=== PATIENT | male | born 1960 | race Caucasian/White ===

== ENCOUNTER 2017-05-24 15:33 | Inpatient (IN) | payer OTHER ==
[~2017-05-24] VITALS: Ht 177.8 cm; Wt 101.2 kg
--- NOTE | ~2017-05-24 | HP ---
Unit #: [id number] #: [id number] Patient: GUNNAR LEONARDO [id number] [place] [address] [id number] MR#: [id number] NAME: GUNNAR LEONARDO ROOM: P178 Age: 56 Sex: M Admission Date: 05/24/2017 : 1960 Attending Physician: Rob Youngblood M.D. Admitting Physician: Rob Youngblood M.D. Primary Care Physician: Primary Care Physician No HISTORY AND PHYSICAL HISTORY OF PRESENT ILLNESS Gunnar is a 56 year old admitted to [facility] because of his continued polysubstance abuse which includes opioids and benzodiazepines. He has had other admissions to this facility for the same. PAST MEDICAL HISTORY 1. Long history of illicit substance abuse. 2. Celiac disease. 3. High blood pressure. 4. History of diverticulitis. PAST SURGICAL HISTORY 1. Colon resection. 2. Right inguinal hernia repair. ALLERGIES No known drug allergies. SOCIAL HISTORY He does not smoke. Drinks alcohol on occasion. Admits to a long history of illicit substance abuse to include opioids and benzodiazepines. FAMILY HISTORY Medically noncontributory. REVIEW OF SYSTEMS CONSTITUTIONAL: No fever or chills. HEENT: Denies any sore throat, ear pain or runny nose. CARDIOVASCULAR: Denies chest pain, irregular heart rhythm or palpitations. CHEST: Denies shortness of breath or cough. No hemoptysis. GASTROINTESTINAL: Denies nausea, vomiting, diarrhea or chronic constipation. ENDOCRINE: Denies history of increased thirst or urination. No recent significant weight loss or gain. GENITOURINARY: Denies dysuria, frequency, or hematuria. SKIN: Denies any rashes. HEMATOLOGIC: Denies history of increased bleeding or bruising. MUSCULOSKELETAL: Denies any hot, swollen joints. No generalized muscle pain. NEUROLOGIC: Denies problems with vision or speech. No frequent, severe headaches. No numbness, tingling or weakness in any extremities. Denies loss of bladder or bowel control. Unit #: [id number] #: [id number] Patient: GUNNAR LEONARDO CURRENT MEDICATIONS Detox protocol PHYSICAL EXAMINATION GENERAL: Alert, well-nourished, in no apparent distress. VITAL SIGNS: Blood pressure 130/80, heart rate 60, respirations 16, temperature 98.6. WEIGHT: 223 pounds. HEIGHT: 5'10". SKIN: Warm and dry without rash or lesion. HEENT: Normocephalic. TMs not viewed. Oral and nasal passages clear. Conjunctivae clear. Pupils equal, round and reactive to light and accommodation. Extraocular movements intact. NECK: Supple without lymphadenopathy or thyromegaly. HEART: Regular rate and rhythm without murmur. LUNGS: Clear. ABDOMEN: Soft, nontender. : Not done. EXTREMITIES: No evidence of cyanosis, clubbing or edema. Moves all extremities without focal deficit. NEUROLOGICAL: Grossly within normal limits. Cranial Nerves: II: Visual horta are intact. III, IV AND : Extraocular movements are intact. Pupils are equal, round and reactive to light. V: Facial sensation is grossly normal. VII: Facial movements and expression are normal. VIII: Auditory acuity grossly intact. IX, X: Uvula is midline. Phonation is normal. XI: Patient shrugs shoulders and turns head normally. XII: Tongue protrudes in the midline. Sensory and Motor Function: Sensory and motor sensation is grossly normal. Motor: moves all extremities well. Coordination: Gait is normal. Deep Tendon Reflexes: Intact. IMPRESSION Psychiatric admission RECOMMENDATIONS PSYCHIATRIC: Per psychiatrist. MEDICAL: 1. I see no contraindications to participating in facility's activities. 2. Monitor blood pressure q shift. Pressures are controlled on admission and he is admitted on no blood pressure medication. MEDICAL PROGNOSIS Good. MEDICAL CONDITION Stable. Dictated by... Kathy Sal P.A.-C. for Albino Shoemaker M.D. Unit #: [id number] #: [id number] Patient: GUNNAR LEONARDO MAYCO/dennis TD: 05/25/2017 21:39 JOB #: [id number] HISTORY AND PHYSICAL Page 1 of 1 X Kathy Sal HISTORY AND PHYSICAL
--- NOTE | ~2017-05-24 | DS ---
Unit #: [id number] #: [id number] Patient: GUNNAR LEONARDO [id number] [facility] [address] [place] [address] [id number] MR#: [id number] NAME: GUNNAR LEONARDO ROOM: [facility] Age: 56 Sex: M Admission Date: 05/24/2017 : 1960 Discharge Date: 05/26/2017 Attending Physician: Rob Youngblood M.D. Primary Care Physician: Primary Care Physician No DISCHARGE SUMMARY REASON FOR ADMISSION Gunnar is a 56-year-old man, who reported he has been using 100 to 160 mg of oxycodone daily together with small amounts of alprazolam. He had suicidal ideation with a plan to shoot himself and was admitted for stabilization. LABORATORY DATA Please see hospital chart. HOSPITAL COURSE The patient was admitted and placed on the opioid detox protocol and p.r.n. Ativan. He declined initiation of antidepressant medication, and did not express further suicidal ideation after admission. The following day, he showed significant improvement with establishment of sobriety and minimal detox symptoms. He was once again able to contract for safety in the outpatient setting at that time. DISCHARGE DIAGNOSES AXIS I: Opiate dependence with withdrawal, uncomplicated; benzodiazepine abuse. AXIS II: No diagnosis. AXIS III: Polysubstance withdrawal. AXIS IV: AXIS V: DISCHARGE INSTRUCTIONS Follow up with intensive outpatient program at this facility and primary care physician. DISCHARGE MEDICATIONS None. CONDITION AT DISCHARGE Improved. PROGNOSIS Good. DIET AND ACTIVITY Per primary care doctor. Unit #: [id number] #: [id number] Patient: GUNNAR LEONARDO Dictated by... Coty Shelley/imelda TD: 05/26/2017 13:41 JOB #: [id number] DISCHARGE SUMMARY Page 1 of 1 X Rob Youngblood MD X DISCHARGE SUMMARY
--- NOTE | ~2017-05-24 | PA ---
Unit #: [id number] #: [id number] Patient: GUNNAR LEONARDO [id number] [place] [address] [id number] I MR#: [id number] NAME: GUNNAR LEONARDO ROOM: [facility] Age: 56 Sex: M Admission Date: 05/24/2017 : 1960 Date of Assessment: 05/25/2017 Attending Physician: Rob Youngblood M.D. Admitting Physician: Rob Youngblood M.D. Primary Care Physician: Primary Care Physician No PSYCHIATRIC ASSESSMENT DATE OF SERVICE 05/25/2017. INFORMANTS The patient reliable; OLOP, reliable. CHIEF COMPLAINT "I have a drug addiction and thoughts of suicide." HISTORY OF PRESENT ILLNESS Gunnar is a 56-year-old man, who reported that he has been using 100 to 160 mg of oxycodone daily with 3 mg a day of alprazolam. His has recently from him and he had a plan to borrow a gun from a friend and shoot himself. He was unable to contract for safety and was admitted for stabilization. PAST PSYCHIATRIC HISTORY The patient reports one previous inpatient treatment at the [facility] in 2013 for chemical dependence issues. FAMILY PSYCHIATRIC HISTORY The patient's sister committed suicide when she was a teenager. He says there is an extensive family history of mental illness and chemical dependence issues. SOCIAL HISTORY The patient denied any history of childhood abuse or neglect. He is a heterosexual man. His girlfriend has recently from him. 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 He has recently moved in with his Personal[employer] sponsor. PAST MEDICAL HISTORY Significant for celiac disease. MEDICATIONS None currently. ALLERGIES The patient has no known drug allergies, but is lactose and gluten intolerant. SUBSTANCE ABUSE HISTORY Unit #: [id number] #: [id number] Patient: GUNNAR LEONARDO As noted above. MENTAL STATUS EXAMINATION The patient presented as a mildly disheveled man, who appeared his stated age. He was cooperative with the examination. His speech was spontaneous and easily understood. His musculoskeletal examination was calm. His mood was anxious and dysphoric with a congruent affect. He was alert and fully oriented. His memory and concentration were intact. His thought processes were logical with no active psychosis. He reported suicidal ideation with a plan to shoot himself and could not contract for safety. His insight and judgment were fair. His fund of knowledge and abstraction were fair. ASSETS AND LIABILITIES The patient knows local resources and presents voluntarily for treatment. Liabilities include separation from spouse, ongoing drug use. ADMITTING DIAGNOSES AXIS I: Opiate dependence with withdrawal, uncomplicated, F11.23, history of benzodiazepine abuse. AXIS II: No diagnosis. AXIS III: Polysubstance withdrawal. AXIS IV: AXIS V: PSYCHIATRIC PLAN The patient was admitted and placed on the opioid detox protocol with the addition of p.r.n. Ativan for his benzodiazepine detox symptomatology. He will also be placed on the suicide precautions. He will enroll in dual diagnosis groups and activities. A physical examination and laboratory studies will be ordered and reviewed. TREATMENT GOALS Establishment of sobriety, resolution of SI, improvement in insight, and improvement in coping skills. DISCHARGE PLANNING Follow up with [facility]. ESTIMATED LENGTH OF STAY 5 days. Dictated by... Rob Youngblood M.D. ROSS/imelda TD: 05/25/2017 13:05 JOB #: [id number] Unit #: [id number] #: [id number] Patient: GUNNAR LEONARDO PSYCHIATRIC ASSESSMENT Page 1 of 1 X Rob Youngblood MD X PSYCHIATRIC ASSESSMENT
[~2017-05-24 15:33] MED LIST: AFRIN3 ML NS; BENTYL20 MG PO; HYDROCHLOROTHIA25 MG PO; NAPROXEN SODIU500 MG PO; ZYRTEC PO
[2017-05-25 09:37] LABS: BASOPHIL% 0.9 % (0-2.5); EOSINOPHIL# 0.2 X10e3 (0-0.7); EOSINOPHIL% 4.3 % (0.0-7.0); HEMATOCRIT 40.4 % (38.0-50.0); HEMOGLOBIN 13.8 gm/dL (13.0-16.0); LYMPHOCYTE# 1.6 X10e3 (1.0-3.5); LYMPHOCYTE% 29.1 % (17.0-45.0); MEAN CELL VOLUME 94.9 FL (83-96); MEAN CORPUSCULAR HEMOGLOBIN 32.4 PG (28-34); MEAN CORPUSCULAR HGB CONC 34.2 g/dL (30-36); MEAN PLATELET VOLUME 6.4 FL (6.5-11.5); MONOCYTE# 0.6 X10e3 (0-1.0); MONOCYTE% 10.6 % (3.0-12.0); NEUTROPHIL% 55.1 % (40-75); PLATELET COUNT 319 X10e3 (140-420); RED BLOOD COUNT 4.25 X10e (3.90-5.60); RED CELL DISTRIBUTION WIDTH 12.7 % (11.0-15.5); WHITE BLOOD COUNT 5.4 X10e3 (4.0-10.5)
[2017-05-25 09:43] LABS: DIFF IND NO
[2017-05-25 10:20] LABS: ALBUMIN SERUM 4.1 g/dL (3.5-5.0); BILIRUBIN,TOTAL 0.1 mg/dL (0.2-2.0); BUN/CREATININE RATIO 18.18; CALCIUM SERUM 9.3 mg/dL (8.4-10.2); CREATININE SERUM 1.1 mg/dL (0.6-1.4); GLOM FILT RATE Estimated 74.7 mL/min (>60); POTASSIUM 4.8 mmol/L (3.5-5.1)
== END 2017-05-26 12:20 | DRG 897 ==
LOC: P1E 16:35
PROVIDERS: Psychiatry & Neurology Psychiatry
PROC: HZ2ZZZZ Detoxification Services for Substance Abuse Treatment (ICD-10-PCS; principal; 2017-05-24)
DX: F11.23 Opioid dependence with withdrawal (principal); I10 Essential (primary) hypertension; K90.0 Celiac disease
CPT/HCPCS: 80053; 85025